=== PATIENT | male | born 1945 | race American Indian/Alaskan Native ===

== ENCOUNTER 2019-10-13 10:44 | Outpatient (CLI) | payer OTHER ==
--- NOTE | 2019-10-13 15:04 | Mammography Report ---
BILATERAL DIGITAL DIAGNOSTIC MAMMOGRAM WITH CAD 10/13/2019 BILATERAL COMPLETE BREAST ULTRASOUND INDICATION: 74-year-old male with BILATERAL NIPPLE DISCHARGE. He describes bilateral spontaneous milk y discharge. TECHNIQUE: Digital bilateral mammographic imaging was performed. Complete ultrasound of all four (4) quadrants was performed. This examination was interpreted with the benefit of Computer-Aided Detecti on (CAD) analysis. COMPARISON: None. FINDINGS: Breast Density: The breasts are almost entirely fatty. MAMMOGRAPHIC FINDINGS: There is no evidence of dominant mass, suspicious calcifications or architectu ral distortion in either breast. Minimal lateral subareolar fibroglandular densities. ULTRASOUND FINDINGS: Complete sonographic evaluation of all 4 quadrants and retroareolar region was p erformed. Ultrasound of the right breast demonstrated a 6 mm cyst versus trapped fluid within the n ipple and no other abnormality. No mass or suspicious shadowing. No duct ectasia. Ultrasound of the l eft breast demonstrated no abnormality. IMPRESSION: Negative mammogram and a 6 mm cyst of the right nipple versus trapped fluid within the ni pple. This is probably a benign finding. Recommend 3 month follow-up targeted ultrasound of the right nipple and recommend consultation with a breast surgeon. Follow up recommendation: Surgical consult BI-RADS Category 3: Probably Benign. Followup in 3 months. A "normal" or negative report should not discourage follow up or biopsy of a clinically significant f inding. A written summary of these findings will be mailed to the patient. The patient will be entered into a mammography reporting system which will generate a reminder letter for the patient's next appointmen t at the appropriate interval. According to the [employer], yearly mammograms are recommended starting at age 40 and continuing as long as a woman is in good health. Breast MRI is recommended for women with an meli roximately 20-25% or greater lifetime risk of breast cancer, including women with a strong family his tory of breast or ovarian cancer and women who have been treated for Hodgkin's disease. Signer Name: Americo Tam MD Signed: 10/13/2019 3:00 PM Workstation Name: [id number]
== END 2019-10-13 10:45 | disposition home or self-care (01) ==
LOC: MAMMO 10:44
PROVIDERS: ATTEND Internal Medicine
DX: N60.01 Solitary cyst of right breast (principal)
CPT/HCPCS: 77066

== ENCOUNTER 2020-01-02 10:20 | Outpatient (CLI) | payer OTHER ==
--- NOTE | 2020-01-02 11:28 | Ultrasound Report ---
RIGHT BREAST ULTRASOUND HISTORY: 74-year-old male with bilateral nipple discharge. Follow-up in 6 mm cyst of the nipple. COMPARISON: 10/13/2019 FINDINGS: Sonographic evaluation focused upon the nipple location of the right breast demonstrates a persistent cysts of the nipple measuring 7 x 5 x 3 mm compared to 6 x 5 x 5 mm on the last exam. No o ther significant finding. IMPRESSION: A persistent cyst of the right nipple which now measures 7 mm maximum diameter. Recommend surgical consultation for further evaluation. BIRADS 3: Probably benign. Signer Name: Americo Tam MD Signed: 01/02/2020 11:23 AM Workstation Name: [id number]
== END 2020-01-02 10:21 | disposition home or self-care (01) ==
LOC: MAMMO 10:20
PROVIDERS: ATTEND Internal Medicine
DX: N64.52 Nipple discharge (principal); R92.8 Other abnormal and inconclusive findings on diagnostic imaging of breast

== ENCOUNTER 2022-01-11 08:24 | Outpatient (CLI) | payer MEDICARE, OTHER ==
--- NOTE | 2022-01-11 09:23 | Cat Scan Report ---
CT ABDOMEN AND PELVIS WITHOUT CONTRAST HISTORY: PROSTATE CANCER C61. COMPARISON: None. TECHNIQUE: CT images of the abdomen and pelvis were obtained without administration of intravenous co ntrast. All CT scans at this location are performed using CT dose reduction for ALARA by means of au tomated exposure control. FINDINGS: Lungs/bones: Mild atelectasis in the lower lungs Abdomen/pelvis: Within limits of a noncontrast examination the spleen, adrenal glands, pancreas, gal lbladder and upper GI tract appears normal. Hypodensity is seen in the right hepatic lobe measuring 9 mm. Bilateral renal hypodensities likely representing cysts. Multiple nonobstructing stones are seen within the right kidney largest measures 8 to 9 mm. Bladder wall thickening is identified. Prostate is enlarged with prosthetic calcifications. Atherosclerotic change throughout the aorta. Bowel loops are unremarkable. No focal inflammatory change. Right adrenal nodule is seen with calcification measuring 1.9 cm. Degenerative changes seen throughou t spine IMPRESSION: 1. Small hypodensity in the right hepatic lobe may represent a cyst however too small to characterize . 2. Prominent bilateral renal cysts. Nonobstructing right renal stones 3. Prostate is enlarged. Correlate with PSA. Patient with history of prostate cancer 4. Urinary bladder wall thickening. Clinical correlation. 5. Extensive atherosclerotic change throughout the aorta Signer Name: Didier Santos MD Signed: 01/11/2022 9:19 AM Workstation Name: [id number]
--- NOTE | 2022-01-11 13:34 | Nuclear Medicine Report ---
NUCLEAR MEDICINE BONE SCAN, WHOLE BODY INDICATION: C61. Recently diagnosed prostate cancer TECHNIQUE: 27 mCi of Tc-99m MDP were injected IV. Whole body images were obtained. COMPARISON: CT abdomen pelvis without contrast performed the same day. FINDINGS: Skeletal Structures: Fairly symmetric, likely degenerative uptake is present involving the shoulders , sternoclavicular joints, knees and feet.. Skeletal Lesions: No suspicious bony lesions for metastatic disease. Soft Tissues: Normal. Kidneys: Normal, symmetric activity. Additional Findings: There is focal uptake along the maxilla consistent with periodontal disease.. IMPRESSION: No scintigraphic evidence for metastatic disease to the bones. Signer Name: Mikel Pitts Jr, MD Signed: 01/11/2022 1:30 PM Workstation Name: [id number]
== END 2022-01-11 08:25 | disposition home or self-care (01) ==
LOC: NM 08:24
PROVIDERS: ATTEND Urology
DX: C61 Malignant neoplasm of prostate (principal); N28.1 Cyst of kidney, acquired; I70.0 Atherosclerosis of aorta
CPT/HCPCS: 74176; 78306; A9503